=== PATIENT | female | born 1995 | race African-American/Black ===

== ENCOUNTER → 2020-07-29 16:03 | Observation (INO) ==
[2020-07-29 13:52] LABS: Bacteria,Urine Few per hpf (None-Few); Bilirubin,Urine Negative (Negative); Blood,Urine Negative (Negative); Clarity,Urine Turbid (Clear); Color,Urine Light-Yellow (Yellow); Glucose,Urine (UA) Normal (Normal); Ketones,Urine Negative (Negative); Leukocyte Esterase,Urine Small (Negative); Mucus,Urine Few per lpf (None-Few); Nitrite,Urine Negative (Negative); Protein,Urine Trace mg/dL (Neg-Trace); RBC,Urine 0-3 per hpf (0-3); Renal Epithelial Cells,Urine Few per hpf (None-Few); Specific Gravity,Urine 1.014 (1.010-1.025); Sperm,Urine Present (None Seen); Squamous Epithelial Cell,Urine Moderate per hpf (None-Few); Transitional Epi Cells,Urine Few per hpf (None-Few); Urobilinogen,Urine Normal (Normal)
[2020-07-29 14:34] LABS: Basophils % 0.3 %; Eosinophils # 0.1 K/mcL (0.0-0.6); Eosinophils % 0.6 %; Hematocrit 33.4 % (35.3-44.9); Hemoglobin 10.8 g/dL (11.5-15.4); Immature Granulocytes % 1.3 % (0-4); Lymphocytes # 1.7 K/mcL (0.6-4.6); Lymphocytes % 14.9 %; Mean Corpuscular HGB Conc 32.3 g/dL (31.6-35.5); Mean Corpuscular Hemoglobin 27.2 pg (28.0-33.3); Mean Corpuscular Volume 84.1 fL (83.0-100.0); Monocytes # 0.7 K/mcL (0.0-1.3); Monocytes % 6.1 %; Neutrophils # 8.8 K/mcL (1.6-8.9); Platelet Count 219 K/mcL (140-400); Red Blood Count 3.97 M/mcL (3.82-4.97); Red Cell Distribution Width 13.2 % (11.5-14.5); Segmented Neutrophils % 76.8 %; White Blood Count 11.4 K/mcL (4.3-11.1)
[2020-07-29 14:37] LABS: Protein/Creatinine Ratio,Urine 0.29 mg/mg (0.00-0.20)
[2020-07-29 14:47] LABS: Alanine Aminotransferase 5 Units/L (7-52); Aspartate Amino Transferase 8 Units/L (13-39); BUN/Creatinine Ratio 10 (6-26); Blood Urea Nitrogen 4 mg/dL (6-20); Lactate Dehydrogenase 108 Units/L (140-271); Uric Acid 4.1 mg/dL (2.3-7.6); eGFR For African Americans > 60 (> 60); eGFR For Non-African Americans > 60 (> 60)
[~2020-07-29 16:03] MED LIST: Acetaminophen 325 MG TABLET PO ONE
== END | disposition home or self-care (01) ==
LOC: 1NENULAB
PROVIDERS: ADMIT Obstetrics & Gynecology; ATTEND Obstetrics & Gynecology

== ENCOUNTER 2020-08-30 14:38 | Observation (INO) ==
[2020-08-30 15:28] LABS: Basophils # 0.1 K/mcL (0.0-0.2); Basophils % 0.5 %; Eosinophils # 0.1 K/mcL (0.0-0.6); Eosinophils % 0.6 %; Hematocrit 32.3 % (35.3-44.9); Hemoglobin 10.7 g/dL (11.5-15.4); Immature Granulocytes % 1.6 % (0-4); Lymphocytes # 1.8 K/mcL (0.6-4.6); Lymphocytes % 18.8 %; Mean Corpuscular HGB Conc 33.1 g/dL (31.6-35.5); Mean Corpuscular Hemoglobin 27.2 pg (28.0-33.3); Mean Corpuscular Volume 82.2 fL (83.0-100.0); Monocytes % 10.2 %; Neutrophils # 6.3 K/mcL (1.6-8.9); Platelet Count 211 K/mcL (140-400); Red Blood Count 3.93 M/mcL (3.82-4.97); Red Cell Distribution Width 13.7 % (11.5-14.5); Segmented Neutrophils % 68.3 %; White Blood Count 9.3 K/mcL (4.3-11.1)
[2020-08-30 15:30] LABS: Bacteria,Urine Few per hpf (None-Few); Bilirubin,Urine Negative (Negative); Blood,Urine Negative (Negative); Calcium Oxalate Crystals,Urine Present; Clarity,Urine Turbid (Clear); Color,Urine Yellow (Yellow); Glucose,Urine (UA) Normal (Normal); Ketones,Urine Trace mg/dL (Negative); Leukocyte Esterase,Urine Small (Negative); Mucus,Urine Few per lpf (None-Few); Nitrite,Urine Negative (Negative); PH,Urine 6.5 pH Units (5.0-8.0); Protein,Urine 200 mg/dL (Neg-Trace); Specific Gravity,Urine > 1.030 (1.010-1.025); Squamous Epithelial Cell,Urine Many per hpf (None-Few); WBC,Urine 15-30 per hpf (0-3)
[2020-08-30 15:41] LABS: Protein/Creatinine Ratio,Urine 0.63 mg/mg (0.00-0.20)
[2020-08-30 15:57] LABS: Alanine Aminotransferase 5 Units/L (7-52); Aspartate Amino Transferase 10 Units/L (13-39); BUN/Creatinine Ratio 9 (6-26); Blood Urea Nitrogen 4 mg/dL (6-20); Lactate Dehydrogenase 98 Units/L (140-271); Uric Acid 4.7 mg/dL (2.3-7.6); eGFR For African Americans > 60 (> 60); eGFR For Non-African Americans > 60 (> 60)
[2020-08-30] MEDS ORDERED: *HR* Labetalol 20 MG/4 ML SYRINGE IVP ONE ×3 (17:23→18:15)
[2020-08-30] MEDS: Betamethasone Acet/SodPhos 30 MG/5 ML VIAL IM SCH (17:37)
[2020-08-30] MEDS ORDERED: Acetaminophen 325 MG TABLET PO PRN (20:57)
[2020-08-30] MEDS ORDERED: *HR* Metformin 500 MG TABLET PO SCH (21:00)
[2020-08-31] MEDS ORDERED: Ondansetron ODT 4 MG TAB.RAPDIS SL ONE (06:42)
[2020-08-31 06:46] LABS: Basophils % 0.3 %; Hematocrit 32.3 % (35.3-44.9); Hemoglobin 10.3 g/dL (11.5-15.4); Immature Granulocytes % 1.7 % (0-4); Lymphocytes # 1.5 K/mcL (0.6-4.6); Lymphocytes % 13.6 %; Mean Corpuscular HGB Conc 31.9 g/dL (31.6-35.5); Mean Corpuscular Hemoglobin 26.4 pg (28.0-33.3); Mean Corpuscular Volume 82.8 fL (83.0-100.0); Mean Platelet Volume 9.1 fL (9.4-12.4); Monocytes # 0.6 K/mcL (0.0-1.3); Monocytes % 5.6 %; Neutrophils # 8.5 K/mcL (1.6-8.9); Platelet Count 220 K/mcL (140-400); Segmented Neutrophils % 78.8 %; White Blood Count 10.7 K/mcL (4.3-11.1)
[2020-08-31 07:08] LABS: Alanine Aminotransferase 6 Units/L (7-52); Aspartate Amino Transferase 9 Units/L (13-39); BUN/Creatinine Ratio 9 (6-26); Blood Urea Nitrogen 4 mg/dL (6-20); Lactate Dehydrogenase 98 Units/L (140-271); Uric Acid 5.6 mg/dL (2.3-7.6); eGFR For African Americans > 60 (> 60); eGFR For Non-African Americans > 60 (> 60)
[2020-08-31 08:01] LABS: Glucose 108 mg/dL (70-105)
[2020-08-31] MEDS ORDERED: Prenatal Vit/FA 1 EACH TABLET PO SCH (09:00)
[2020-08-31] MEDS: Betamethasone Acet/SodPhos 30 MG/5 ML VIAL IM SCH (18:01)
== END 2020-08-31 18:55 | disposition home or self-care (01) ==
LOC: 1NENULAB
PROVIDERS: ADMIT Obstetrics & Gynecology; ATTEND Obstetrics & Gynecology

== ENCOUNTER 2020-09-10 05:55 | Inpatient (IN) ==
[2020-09-10] MEDS ORDERED: Famotidine 20 MG/2 ML VIAL IVP PRN (06:00)
[2020-09-10] MEDS ORDERED: Lidocaine 1% 20 ML MDV INFILT PRN (06:00)
[2020-09-10] MEDS ORDERED: Metoclopramide 10 MG/2 ML VIAL IVP PRN (06:00)
[2020-09-10] MEDS ORDERED: Naloxone 0.4 MG/ML INJ IVP PRN (06:00)
[2020-09-10] MEDS ORDERED: Penicillin G Potassium 5,000,000 UNIT in 0.9 % Sodium Chloride Mini Bag 100 ML IVPB ONE (06:02)
[2020-09-10] MEDS: Ringers Solution, Lactated 1,000 ML IVC SCH ×3 (06:37→20:27)
[2020-09-10] MEDS: miSOPROStoL 25 MCG TABLET PO PRN ×2 (06:58→12:23)
[2020-09-10 07:11] LABS: Basophils # 0.1 K/mcL (0.0-0.2); Basophils % 0.5 %; Eosinophils # 0.1 K/mcL (0.0-0.6); Eosinophils % 0.8 %; Hematocrit 30.8 % (35.3-44.9); Hemoglobin 9.9 g/dL (11.5-15.4); Immature Granulocytes % 1.9 % (0-4); Lymphocytes # 2.1 K/mcL (0.6-4.6); Lymphocytes % 19.1 %; Mean Corpuscular HGB Conc 32.1 g/dL (31.6-35.5); Mean Corpuscular Hemoglobin 26.9 pg (28.0-33.3); Mean Corpuscular Volume 83.7 fL (83.0-100.0); Mean Platelet Volume 9.5 fL (9.4-12.4); Monocytes # 0.9 K/mcL (0.0-1.3); Monocytes % 7.9 %; Neutrophils # 7.8 K/mcL (1.6-8.9); Platelet Count 220 K/mcL (140-400); Red Blood Count 3.68 M/mcL (3.82-4.97); Red Cell Distribution Width 13.9 % (11.5-14.5); Segmented Neutrophils % 69.8 %; White Blood Count 11.1 K/mcL (4.3-11.1)
[2020-09-10 07:26] LABS: Creatinine,Urine 55 mg/dL; Protein/Creatinine Ratio,Urine 0.31 mg/mg (0.00-0.20)
[2020-09-10 07:44] LABS: Alanine Aminotransferase 5 Units/L (7-52); Aspartate Amino Transferase 7 Units/L (13-39); BUN/Creatinine Ratio 14 (6-26); Blood Urea Nitrogen 7 mg/dL (6-20); Lactate Dehydrogenase 97 Units/L (140-271); Uric Acid 4.3 mg/dL (2.3-7.6); eGFR For African Americans > 60 (> 60); eGFR For Non-African Americans > 60 (> 60)
[2020-09-10] MEDS ORDERED: EPHEDrine 50 MG/ML VIAL IVP PRN (08:16)
[2020-09-10] MEDS: Penicillin G Potassium 2,500,000 UNIT/105 ML MLS IVPB SCH ×4 (11:09→23:00)
[2020-09-10] MEDS ORDERED: *HR* Labetalol 20 MG/4 ML SYRINGE IVP ONE ×3 (13:26→18:28)
[2020-09-10] MEDS: *HR* FentaNYL (PF) 100 MCG/2 ML VIAL IVP PRN ×2 (13:41→16:46)
[2020-09-10] MEDS: Oxytocin 20 units/ LR 1000 mL 20 UNIT/1,000 ML BAG IVC SCH (17:19)
[2020-09-10] MEDS ORDERED: *HR* FentaNYL (PF) 100 MCG/2 ML VIAL ONE (19:26)
[2020-09-10] MEDS ORDERED: Ropivacaine/PF 0.2% 20 ML VIAL ONE (19:26)
[2020-09-10] MEDS: Ondansetron 4 MG/2 ML VIAL IVP PRN (20:25)
[2020-09-10] MEDS: Epidural Premix (fent/bupiv) 110 ML EP SCH (20:27)
[2020-09-11] MEDS ORDERED: Acetaminophen 325 MG TABLET PO ONE (03:05)
[2020-09-11] MEDS: Epidural Premix (fent/bupiv) 110 ML EP SCH ×4 (03:14→20:24)
[2020-09-11] MEDS: Penicillin G Potassium 2,500,000 UNIT/105 ML MLS IVPB SCH ×4 (03:15→18:22)
[2020-09-11] MEDS: Ondansetron 4 MG/2 ML VIAL IVP PRN (07:40)
[2020-09-11] MEDS: Ringers Solution, Lactated 1,000 ML IVC SCH (07:40)
[2020-09-11 09:37] LABS: Amphetamine Screen,Urine Negative ng/mL (Cutoff=1000); Barbiturate Screen,Urine Negative ng/mL (Cutoff=200); Benzodiazepines Screen,Urine Negative ng/mL (Cutoff=200); Cannabinoid Screen,Urine Positive ng/mL (Cutoff = 50); Cocaine Screen,Urine Negative ng/mL (Cutoff= 300); Opiate Screen,Urine Negative ng/mL (Cutoff=300); Phencyclidine Screen,Urine Negative ng/mL (Cutoff=25)
[2020-09-11] MEDS ORDERED: Acetaminophen 325 MG TABLET PO PRN (11:04)
[2020-09-11] MEDS: Oxytocin 20 units/ LR 1000 mL 20 UNIT/1,000 ML BAG IVC SCH (11:57)
[2020-09-11] MEDS ORDERED: Dextrose Gel 15 GM/37.5 ML TUBE PO PRN ×2 (16:53)
[2020-09-11] MEDS ORDERED: *HR* Dextrose 50 % in Water (Vial) 50 ML VIAL IVP PRN (16:53)
[2020-09-11] MEDS ORDERED: D5% in Water 1,000 ML IVC PRN (16:53)
[2020-09-11] MEDS ORDERED: Insulin LISPRO 300 UNITS/3 ML VIAL SQ SCH (17:00)
[2020-09-11 18:37] LABS: Bordetella Pertussis Not Detected (Not Detect); Chlamydophila pneumoniae Not Detected (Not Detect); Human Metapneumovirus Not Detected (Not Detect); Human Rhinovirus/Enterovirus DETECTED (Not Detect); Influenza A Subtype 2009 H1 Not Detected (Not Detect); Influenza B Not Detected (Not Detect); Mycoplasma pneumoniae Not Detected (Not Detect); Parainfluenza Virus 1 Not Detected (Not Detect); Parainfluenza Virus 2 Not Detected (Not Detect); Parainfluenza Virus 3 Not Detected (Not Detect); Parainfluenza Virus 4 Not Detected (Not Detect); Respiratory Syncytial Virus Not Detected (Not Detect)
[2020-09-11 18:38] LABS: Adenovirus Not Detected (Not Detect); Coronavirus 229E Not Detected (Not Detect); Coronavirus HKU1 Not Detected (Not Detect); Coronavirus NL63 Not Detected (Not Detect); Coronavirus OC43 Not Detected (Not Detect); SARS-CoV-2 Not Detected (Not Detect)
[2020-09-11] MEDS ORDERED: Azithromycin 500 MG in 0.9 % Sodium Chloride 250 ML IVPB ONE (22:43)
[2020-09-11] MEDS ORDERED: Ropivacaine/PF 0.2% 20 ML VIAL ONE (23:08)
[2020-09-11] MEDS ORDERED: *HR* FentaNYL (PF) 100 MCG/2 ML VIAL ONE (23:08)
[2020-09-12] MEDS: Penicillin G Potassium 2,500,000 UNIT/105 ML MLS IVPB SCH ×2 (00:11→07:38)
[2020-09-12] MEDS: Epidural Premix (fent/bupiv) 110 ML EP SCH ×2 (01:23→06:37)
[2020-09-12] MEDS: Oxytocin 20 units/ LR 1000 mL 20 UNIT/1,000 ML BAG IVC SCH (06:37)
[2020-09-12] MEDS ORDERED: *HR* FentaNYL (PF) 100 MCG/2 ML VIAL ONE (06:57)
[2020-09-12] MEDS ORDERED: Lanolin 7 G OINT...G. TP PRN (11:17)
[2020-09-12] MEDS ORDERED: Benzocaine/Menthol 56 GM AEROSOL SPRAY TP PRN (11:17)
[2020-09-12] MEDS ORDERED: Calcium Gluconate 1,000 MG/10 ML VIAL IVP PRN (11:17)
[2020-09-12] MEDS ORDERED: Oxytocin 20 units/ LR 1000 mL 20 UNIT/1,000 ML BAG IVC SCH (11:17)
[2020-09-12] MEDS ORDERED: Sennosides 8.6 MG TABLET PO PRN (11:17)
[2020-09-12] MEDS: Magnesium Sulf 20 gm/SW 500mL 20 GM/500 ML IV.SOLN IVC SCH ×2 (12:01→21:07)
[2020-09-12] MEDS: Ibuprofen 600 MG TABLET PO PRN ×2 (14:24→20:08)
[2020-09-12] MEDS: Acetaminophen 325 MG TABLET PO PRN (19:34)
[2020-09-13] MEDS ORDERED: Ringers Solution, Lactated 1,000 ML ONE (01:19)
[2020-09-13 06:07] LABS: Aspartate Amino Transferase 12 Units/L (13-39); eGFR For African Americans > 60 (> 60); eGFR For Non-African Americans > 60 (> 60)
[2020-09-13] MEDS: Magnesium Sulf 20 gm/SW 500mL 20 GM/500 ML IV.SOLN IVC SCH (07:03)
[2020-09-13] MEDS: Acetaminophen 325 MG TABLET PO PRN ×2 (07:04→16:39)
[2020-09-13] MEDS: Ibuprofen 600 MG TABLET PO PRN (08:06)
[2020-09-13] MEDS ORDERED: Prenatal Vit/FA 1 EACH TABLET PO SCH (09:00)
[2020-09-13] MEDS: NIFEdipine XL (24 HR) 30 MG TAB.ER.24 PO SCH ×2 (11:39→20:08)
[2020-09-14] MEDS: Acetaminophen 325 MG TABLET PO PRN ×2 (00:24→09:51)
[2020-09-14] MEDS: Ibuprofen 600 MG TABLET PO PRN (07:48)
[2020-09-14] MEDS: NIFEdipine XL (24 HR) 30 MG TAB.ER.24 PO SCH (07:50)
[2020-09-14] MEDS ORDERED: NIFEdipine XL (24 HR) 30 MG TAB.ER.24 PO SCH (09:30)
[2020-09-14 10:17] LABS: Alanine Aminotransferase 9 Units/L (7-52); Aspartate Amino Transferase 14 Units/L (13-39); BUN/Creatinine Ratio 13 (6-26); Blood Urea Nitrogen 8 mg/dL (6-20); Lactate Dehydrogenase 154 Units/L (140-271); eGFR For African Americans > 60 (> 60); eGFR For Non-African Americans > 60 (> 60)
[2020-09-14 10:19] LABS: Basophils # 0.1 K/mcL (0.0-0.2); Basophils % 0.6 %; Eosinophils # 0.2 K/mcL (0.0-0.6); Eosinophils % 1.7 %; Hemoglobin 10.6 g/dL (11.5-15.4); Immature Granulocytes % 1.3 % (0-4); Lymphocytes # 2.3 K/mcL (0.6-4.6); Lymphocytes % 17.7 %; Mean Corpuscular HGB Conc 32.1 g/dL (31.6-35.5); Mean Corpuscular Hemoglobin 26.2 pg (28.0-33.3); Mean Corpuscular Volume 81.5 fL (83.0-100.0); Mean Platelet Volume 8.9 fL (9.4-12.4); Monocytes # 0.9 K/mcL (0.0-1.3); Monocytes % 6.6 %; Neutrophils # 9.5 K/mcL (1.6-8.9); Platelet Count 260 K/mcL (140-400); Red Blood Count 4.05 M/mcL (3.82-4.97); Red Cell Distribution Width 13.9 % (11.5-14.5); Segmented Neutrophils % 72.1 %; White Blood Count 13.2 K/mcL (4.3-11.1)
[2020-09-14 11:47] VITALS: BP 139/75
[2020-09-15] MEDS ORDERED: NIFEdipine XL (24 HR) 30 MG TAB.ER.24 PO SCH (09:00)
== END 2020-09-14 12:00 | disposition home or self-care (01) | DRG 560 ==
LOC: 1NENULAB 05:55 → 1NENUOBS 09-12 13:15
PROVIDERS: ADMIT Obstetrics & Gynecology; ATTEND Obstetrics & Gynecology

== ENCOUNTER 2021-11-24 15:14 | Observation (INO) ==
[2021-11-24] MEDS ORDERED: *HR* Labetalol 20 MG/4 ML SYRINGE IVP ONE ×3 (16:03→16:29)
[2021-11-24] MEDS ORDERED: *HR* Labetalol 20 MG/4 ML SYRINGE IVP PRN (16:10)
[2021-11-24 16:39] LABS: Basophils # 0.1 K/mcL (0.0-0.2); Basophils % 0.4 %; Eosinophils # 0.1 K/mcL (0.0-0.6); Eosinophils % 0.6 %; Hemoglobin 11.9 g/dL (11.5-15.4); Immature Granulocytes % 1.1 % (0-4); Lymphocytes # 2.2 K/mcL (0.6-4.6); Lymphocytes % 17.6 %; Mean Corpuscular Hemoglobin 28.3 pg (28.0-33.3); Mean Platelet Volume 10.1 fL (9.4-12.4); Monocytes % 8.4 %; Neutrophils # 8.9 K/mcL (1.6-8.9); Platelet Count 248 K/mcL (140-400); Red Cell Distribution Width 13.6 % (11.5-14.5); Segmented Neutrophils % 71.9 %; White Blood Count 12.4 K/mcL (4.3-11.1)
[2021-11-24 16:42] LABS: Protein/Creatinine Ratio,Urine 0.42 mg/mg (0.00-0.20)
[2021-11-24 16:49] LABS: Bilirubin,Urine Negative (Negative); Blood,Urine Negative (Negative); Clarity,Urine Clear (Clear); Color,Urine Yellow (Yellow); Glucose,Urine (UA) Normal (Normal); Ketones,Urine Negative (Negative); Leukocyte Esterase,Urine Negative (Negative); Nitrite,Urine Negative (Negative); Protein,Urine 30 mg/dL (Neg-Trace); Urobilinogen,Urine Normal (Normal)
[2021-11-24 16:51] LABS: Alanine Aminotransferase 4 Units/L (7-52); Aspartate Amino Transferase 7 Units/L (13-39); BUN/Creatinine Ratio 13 (6-26); Blood Urea Nitrogen 6 mg/dL (6-20); Hyaline Casts,Urine None Seen per lpf (None Seen); Lactate Dehydrogenase 129 Units/L (140-271); Squamous Epithelial Cell,Urine Many per hpf (None-Few); Uric Acid 4.1 mg/dL (2.3-7.6); eGFR For African Americans > 60 (> 60); eGFR For Non-African Americans > 60 (> 60)
[2021-11-24 16:52] LABS: Bacteria,Urine None Seen per hpf (None-Few); RBC,Urine 0-3 per hpf (0-3); WBC,Urine 0-3 per hpf (0-3)
== END 2021-11-24 21:28 | disposition home or self-care (01) ==
LOC: 1NENULAB
PROVIDERS: ADMIT Advanced Practice Midwife; ATTEND Advanced Practice Midwife

== ENCOUNTER 2021-11-30 08:21 | Inpatient (IN) ==
[2021-11-30 04:24] LABS: Basophils # 0.1 K/mcL (0.0-0.2); Basophils % 0.5 %; Eosinophils # 0.1 K/mcL (0.0-0.6); Eosinophils % 1.1 %; Hematocrit 33.4 % (35.3-44.9); Immature Granulocytes % 1.3 % (0-4); Lymphocytes # 2.2 K/mcL (0.6-4.6); Lymphocytes % 20.5 %; Mean Corpuscular HGB Conc 32.9 g/dL (31.6-35.5); Mean Corpuscular Hemoglobin 26.5 pg (28.0-33.3); Mean Corpuscular Volume 80.5 fL (83.0-100.0); Monocytes % 9.7 %; Neutrophils # 7.1 K/mcL (1.6-8.9); Platelet Count 226 K/mcL (140-400); Red Blood Count 4.15 M/mcL (3.82-4.97); Red Cell Distribution Width 13.6 % (11.5-14.5); Segmented Neutrophils % 66.9 %; White Blood Count 10.7 K/mcL (4.3-11.1)
[2021-11-30 04:36] LABS: Alanine Aminotransferase 5 Units/L (7-52); Aspartate Amino Transferase 8 Units/L (13-39); BUN/Creatinine Ratio 8 (6-26); Blood Urea Nitrogen 4 mg/dL (6-20); Glucose 106 mg/dL (70-105); Lactate Dehydrogenase 118 Units/L (140-271); Uric Acid 4.3 mg/dL (2.3-7.6); eGFR For African Americans > 60 (> 60); eGFR For Non-African Americans > 60 (> 60)
[2021-11-30 04:55] LABS: Protein/Creatinine Ratio,Urine 0.59 mg/mg (0.00-0.20)
[~2021-11-30 08:21] MED LIST changes: +*HR* Labetalol 20 MG/4 ML SYRINGE IVP ONE; +*HR* Labetalol 20 MG/4 ML SYRINGE IVP PRN; -Acetaminophen 325 MG TABLET PO ONE
[2021-11-30] MEDS ORDERED: Naloxone 0.4 MG/ML INJ IVP PRN ×2 (08:29→11:05)
[2021-11-30] MEDS ORDERED: *HR* Nalbuphine 10 MG/ML AMPUL IV PRN (08:29)
[2021-11-30] MEDS ORDERED: Famotidine 20 MG/2 ML VIAL IVP PRN (08:29)
[2021-11-30] MEDS ORDERED: Lidocaine 1% 20 ML MDV ID PRN (08:29)
[2021-11-30] MEDS ORDERED: Metoclopramide 10 MG/2 ML VIAL IVP PRN (08:29)
[2021-11-30] MEDS ORDERED: Azithromycin 500 MG in 0.9 % Sodium Chloride 250 ML IVPB PRN (08:29)
[2021-11-30] MEDS ORDERED: *HR* Labetalol 20 MG/4 ML SYRINGE IVP STA (08:37)
[2021-11-30] MEDS: Ondansetron 4 MG/2 ML VIAL IVP PRN ×3 (09:08→23:49)
[2021-11-30] MEDS ORDERED: miSOPROStoL 25 MCG TABLET PO PRN (09:32)
[2021-11-30 10:05] LABS: Amphetamine Screen,Urine Negative ng/mL (Cutoff=1000); Barbiturate Screen,Urine Negative ng/mL (Cutoff=200); Benzodiazepines Screen,Urine Negative ng/mL (Cutoff=200); Cannabinoid Screen,Urine Positive ng/mL (Cutoff = 50); Opiate Screen,Urine Negative ng/mL (Cutoff=300); Phencyclidine Screen,Urine Negative ng/mL (Cutoff=25)
[2021-11-30] MEDS: Magnesium Sulf 20 gm/SW 500mL 20 GM/500 ML IV.SOLN IVC SCH ×2 (10:14→18:45)
[2021-11-30 10:30] LABS: Cocaine Screen,Urine Negative ng/mL (Cutoff= 300)
[2021-11-30] MEDS ORDERED: Ondansetron 4 MG/2 ML VIAL IVP PRN (11:05)
[2021-11-30] MEDS ORDERED: EPHEDrine 50 MG/ML VIAL IVP PRN (11:05)
[2021-11-30] MEDS ORDERED: *HR* FentaNYL (PF) 100 MCG/2 ML VIAL EP ONE (11:05)
[2021-11-30] MEDS ORDERED: Ropivacaine/PF 0.2% 20 ML VIAL EP ONE (11:05)
[2021-11-30] MEDS ORDERED: NIFEdipine XL (24 HR) 30 MG TAB.ER.24 PO ONE (11:15)
[2021-11-30 11:25] LABS: Influenza A PCR Negative (Negative); Influenza B PCR Negative (Negative); Resp. Syncytial Virus PCR Negative (Negative)
[2021-11-30 11:26] LABS: SARS-CoV-2 by PCR (In House) Negative (Negative)
[2021-11-30] MEDS: *HR* Metformin 500 MG TABLET PO SCH ×2 (11:39→23:32)
[2021-11-30] MEDS ORDERED: Oxytocin 20 units/ LR 1000 mL 20 UNIT/1,000 ML BAG IVC SCH (14:15)
[2021-11-30] MEDS ORDERED: NIFEdipine Immed Rel 10 MG CAPSULE PO ONE (14:57)
[2021-11-30] MEDS: Acetaminophen 325 MG TABLET PO PRN (18:45)
[2021-11-30] MEDS ORDERED: SUMAtriptan succinate 25 MG TABLET PO ONE (21:42)
[2021-11-30] MEDS ORDERED: Ropivacaine/PF 0.2% 20 ML VIAL ONE (23:06)
[2021-12-01] MEDS: Ringers Solution, Lactated 1,000 ML IVC SCH ×2 (00:48→20:59)
[2021-12-01] MEDS: Magnesium Sulf 20 gm/SW 500mL 20 GM/500 ML IV.SOLN IVC SCH ×2 (03:55→13:53)
[2021-12-01] MEDS ORDERED: Ropivacaine/PF 0.2% 20 ML VIAL ONE ×2 (05:04→07:58)
[2021-12-01] MEDS: Epidural Premix (fent/bupiv) 110 ML EP SCH ×2 (05:36→20:58)
[2021-12-01] MEDS: Acetaminophen 325 MG TABLET PO PRN (06:03)
[2021-12-01] MEDS ORDERED: Calcium Gluconate 1,000 MG/10 ML VIAL ONE (06:59)
[2021-12-01] MEDS ORDERED: *HR* FentaNYL (PF) 100 MCG/2 ML VIAL ONE (07:58)
[2021-12-01] MEDS ORDERED: *HR* Labetalol 20 MG/4 ML SYRINGE IVP ONE (10:10)
[2021-12-01] MEDS ORDERED: Benzocaine/Menthol 56 GM AEROSOL SPRAY TP PRN (13:42)
[2021-12-01] MEDS ORDERED: Ondansetron ODT 4 MG TAB.RAPDIS SL PRN (13:42)
[2021-12-01] MEDS ORDERED: Lanolin 7 G OINT...G. TP PRN (13:42)
[2021-12-01] MEDS ORDERED: Acetaminophen 325 MG TABLET PO SCH (13:42)
[2021-12-01] MEDS ORDERED: Oxytocin 20 units/ LR 1000 mL 20 UNIT/1,000 ML BAG IVC ONE (13:42)
[2021-12-01] MEDS: Acetaminophen 325 MG TABLET PO SCH ×2 (15:44→20:51)
[2021-12-01] MEDS: Ibuprofen 600 MG TABLET PO SCH (17:59)
[2021-12-01] MEDS: Oxytocin 20 units/ LR 1000 mL 20 UNIT/1,000 ML BAG IVC SCH ×2 (20:57→21:46)
[2021-12-01] MEDS: *HR* Metformin 500 MG TABLET PO SCH (21:00)
[2021-12-02] MEDS: Ibuprofen 600 MG TABLET PO SCH ×3 (00:10→19:34)
[2021-12-02] MEDS: Magnesium Sulf 20 gm/SW 500mL 20 GM/500 ML IV.SOLN IVC SCH (00:10)
[2021-12-02] MEDS: Acetaminophen 325 MG TABLET PO SCH ×3 (02:40→19:34)
[2021-12-02 05:28] LABS: Basophils # 0.1 K/mcL (0.0-0.2); Basophils % 0.5 %; Eosinophils # 0.1 K/mcL (0.0-0.6); Hematocrit 31.9 % (35.3-44.9); Hemoglobin 10.1 g/dL (11.5-15.4); Immature Granulocytes % 0.6 % (0-4); Lymphocytes # 2.1 K/mcL (0.6-4.6); Lymphocytes % 18.8 %; Mean Corpuscular HGB Conc 31.7 g/dL (31.6-35.5); Mean Corpuscular Hemoglobin 25.9 pg (28.0-33.3); Mean Corpuscular Volume 81.8 fL (83.0-100.0); Mean Platelet Volume 9.9 fL (9.4-12.4); Monocytes # 1.1 K/mcL (0.0-1.3); Monocytes % 9.8 %; Neutrophils # 7.6 K/mcL (1.6-8.9); Platelet Count 222 K/mcL (140-400); Segmented Neutrophils % 69.3 %
[2021-12-02 05:33] LABS: Alanine Aminotransferase 4 Units/L (7-52); Aspartate Amino Transferase 10 Units/L (13-39); Lactate Dehydrogenase 152 Units/L (140-271); Uric Acid 4.7 mg/dL (2.3-7.6); eGFR For African Americans > 60 (> 60); eGFR For Non-African Americans > 60 (> 60)
[2021-12-02 05:34] LABS: BUN/Creatinine Ratio 10 (6-26); Blood Urea Nitrogen 6 mg/dL (6-20)
[2021-12-02] MEDS: Prenatal Vit/FA 1 EACH TABLET PO SCH (08:54)
[2021-12-03] MEDS: Ibuprofen 600 MG TABLET PO SCH ×2 (01:40→08:09)
[2021-12-03] MEDS: Acetaminophen 325 MG TABLET PO SCH (01:41)
[2021-12-03 07:37] VITALS: BP 158/88; PULSE 73; TEMP 97.8; O2SAT 97
[2021-12-03] MEDS: Prenatal Vit/FA 1 EACH TABLET PO SCH (08:09)
== END 2021-12-03 10:45 | disposition home or self-care (01) | DRG 560 ==
LOC: 1NENULAB → 1NENUOBS 12-01 13:37
PROVIDERS: ADMIT Obstetrics & Gynecology; ATTEND Obstetrics & Gynecology